=== PATIENT | female | born 1985 | race Caucasian/White ===

== ENCOUNTER 2021-05-01 16:12 | Outpatient (REF) | payer OTHER, SELFPAY ==
--- NOTE | ~2021-05-01 | CT_ITS ---
EXAMINATION: CT LOWER LEG WITHOUT CONTRAST, LEFT CT ANKLE WITHOUT CONTRAST, LEFT CLINICAL INFORMATION: Left lower leg pain and limping. ORIF. COMPARISON: Outside radiographs dated 06/21/[address] dated 02/25/2020. TECHNIQUE: Contiguous axial CT images of the left lower leg and left ankle were obtained without contrast. Multiplanar reformats were provided and reviewed. This CT examination was performed using dose optimization techniques as appropriate, variously including the following: *Automated exposure control *Adjustment of mA and/or kV according to patient size (this includes techniques or standardized protocols for targeted exams where dose is matched to indication/reason for exam; i.e. extremities or head) *Use of iterative reconstruction technique DOSE: 288 mGy-cm. FINDINGS: There is a lateral stabilization plate at the distal fibula with multiple fixation screws. No hardware fracture. There are 2 distal screws which traverse the distal tibiofibular syndesmosis. The screws extend laterally from the stabilization plate by 0.7 and 0.4 cm. Findings are new when compared to the radiographs dated 06/21/2020 and may indicate loosening of the screws. Correlation with surgical history is recommended. Redemonstration of fibular osteotomies with a small amount of osseous bridging at the anterior aspect of the proximal osteotomy and at the posterior aspect of the distal osteotomy. Bridging involves approximately 10% of the fracture surfaces. Healed posterior malleolar fracture with complete osseous bridging. Mild persistent cortical defect at the posterior articular surface of the tibial plafond. No acute fracture or dislocation. There appears to be slight lateral subluxation of the talar dome in relation to the tibial plafond which appears chronic. Corticated ossification adjacent to the medial malleolus, consistent with a remote fracture fragment. No concerning lytic or blastic osseous lesion. No abnormal soft tissue mass or fluid collection. Lateral subcutaneous edema. The visualized flexor and extensor tendons are grossly intact, however, evaluation is limited on CT examination. CT/CT lower leg LT wo con IMPRESSION: 1. Lateral fibular stabilization plate with associated fixation screws. The distal screws which traverse the tibiofibular syndesmosis are elevated laterally in relation to the stabilization plate measuring 0.7 and 0.4 cm. Findings are new when compared to the radiographs dated 06/21/2020 and are concerning for loosening of the screws. No hardware fracture. 2. Probable fibular osteotomies are redemonstrated with approximately 10% osseous bridging anteriorly at the proximal fracture site as well as 10% osseous bridging posteriorly at the distal fracture site. 3. Healed posterior malleolar fracture with persistent cortical defect at the posterior articular surface of the tibial plafond. 4. Mild, chronic-appearing lateral subluxation of the talar dome in relation to the tibial plafond. Remote avulsion injury at the medial malleolus. 5. No acute fracture or dislocation. 6. Lateral subcutaneous edema.
== END 2021-05-01 16:13 | disposition home or self-care (01) ==
LOC: HO.CT 16:12
PROVIDERS: Visit Provider Orthopaedic Surgery
DX: S93.432A Sprain of tibiofibular ligament of left ankle, initial encounter (principal); Z98.890 Other specified postprocedural states
CPT/HCPCS: 73700